=== PATIENT | female | born 1945 | race Caucasian/White ===

== ENCOUNTER → 2025-02-09 12:29 | Outpatient (REF) | payer MEDICARE, SELFPAY | LOC: WOUND 12:29 | PROVIDERS: ATTENDING PHYSICIAN Surgery; FAMILY PHYSICIAN Family Medicine | DX: L97.222 Non-pressure chronic ulcer of left calf with fat layer exposed (principal); L97.322 Non-pressure chronic ulcer of left ankle with fat layer exposed; I73.9 Peripheral vascular disease, unspecified; I87.2 Venous insufficiency (chronic) (peripheral); R60.1 Generalized edema; Z96.653 Presence of artificial knee joint, bilateral | CPT/HCPCS: 11042; 99204 ==

== ENCOUNTER → 2025-02-17 14:15 | Outpatient (REF) | payer MEDICARE, BC, SELFPAY | LOC: WOUND 14:15 | PROVIDERS: ATTENDING PHYSICIAN Surgery; FAMILY PHYSICIAN Family Medicine | DX: L97.222 Non-pressure chronic ulcer of left calf with fat layer exposed (principal); L97.322 Non-pressure chronic ulcer of left ankle with fat layer exposed; I73.9 Peripheral vascular disease, unspecified; I87.2 Venous insufficiency (chronic) (peripheral); R60.1 Generalized edema; Z96.653 Presence of artificial knee joint, bilateral | CPT/HCPCS: 11042 ==

== ENCOUNTER → 2025-02-23 07:46 | Outpatient (REF) | payer MEDICARE, BC, SELFPAY | LOC: RAD 07:46 | PROVIDERS: ATTENDING PHYSICIAN Surgery; FAMILY PHYSICIAN Family Medicine | DX: L97.222 Non-pressure chronic ulcer of left calf with fat layer exposed (principal); I87.2 Venous insufficiency (chronic) (peripheral); L73.9 Follicular disorder, unspecified | CPT/HCPCS: 93922; 93971 ==

== ENCOUNTER → 2025-02-23 09:02 | Outpatient (REF) | payer MEDICARE, BC, SELFPAY | LOC: WOUND 09:02 | PROVIDERS: ATTENDING PHYSICIAN Surgery; FAMILY PHYSICIAN Family Medicine | DX: L97.222 Non-pressure chronic ulcer of left calf with fat layer exposed (principal); L97.322 Non-pressure chronic ulcer of left ankle with fat layer exposed; I73.9 Peripheral vascular disease, unspecified; I87.2 Venous insufficiency (chronic) (peripheral); R60.1 Generalized edema; Z96.653 Presence of artificial knee joint, bilateral | CPT/HCPCS: 11042; 93922; 93971 ==

== ENCOUNTER → 2025-03-02 11:00 | Outpatient (REF) | payer MEDICARE, BC, SELFPAY | LOC: WOUND 11:00 | PROVIDERS: ATTENDING PHYSICIAN Surgery; FAMILY PHYSICIAN Family Medicine | DX: L97.322 Non-pressure chronic ulcer of left ankle with fat layer exposed (principal); I87.2 Venous insufficiency (chronic) (peripheral); R60.1 Generalized edema; Z96.653 Presence of artificial knee joint, bilateral | CPT/HCPCS: 11042 ==

== ENCOUNTER → 2025-03-20 09:56 | Outpatient (REF) | payer MEDICARE, BC, SELFPAY | LOC: WOUND 09:56 | PROVIDERS: ATTENDING PHYSICIAN Surgery | DX: L97.322 Non-pressure chronic ulcer of left ankle with fat layer exposed (principal); I87.2 Venous insufficiency (chronic) (peripheral); R60.1 Generalized edema; Z96.653 Presence of artificial knee joint, bilateral | CPT/HCPCS: 99213 ==

== ENCOUNTER → 2025-03-30 08:53 | Outpatient (REF) | payer MEDICARE, BC, SELFPAY | LOC: WOUND 08:53 | PROVIDERS: ATTENDING PHYSICIAN Surgery; FAMILY PHYSICIAN Family Medicine | DX: L97.322 Non-pressure chronic ulcer of left ankle with fat layer exposed (principal); I87.2 Venous insufficiency (chronic) (peripheral); R60.1 Generalized edema; Z96.653 Presence of artificial knee joint, bilateral | CPT/HCPCS: 11042; 11045 ==

== ENCOUNTER → 2025-04-03 08:41 | Outpatient (REF) | payer MEDICARE, BC, SELFPAY | LOC: WOUND 08:41 | PROVIDERS: ATTENDING PHYSICIAN Surgery; FAMILY PHYSICIAN Family Medicine | DX: L97.322 Non-pressure chronic ulcer of left ankle with fat layer exposed (principal); I87.2 Venous insufficiency (chronic) (peripheral); Z96.653 Presence of artificial knee joint, bilateral | CPT/HCPCS: 29581 ==

== ENCOUNTER → 2025-04-06 08:48 | Outpatient (REF) | payer MEDICARE, BC, SELFPAY | LOC: WOUND 08:48 | PROVIDERS: ATTENDING PHYSICIAN Surgery; FAMILY PHYSICIAN Family Medicine | DX: L97.322 Non-pressure chronic ulcer of left ankle with fat layer exposed (principal); I87.2 Venous insufficiency (chronic) (peripheral); R60.1 Generalized edema; Z96.653 Presence of artificial knee joint, bilateral | CPT/HCPCS: 11042 ==

== ENCOUNTER → 2025-04-13 09:01 | Outpatient (REF) | payer MEDICARE, BC, SELFPAY | LOC: WOUND 09:01 | PROVIDERS: ATTENDING PHYSICIAN Surgery; FAMILY PHYSICIAN Family Medicine | DX: L97.322 Non-pressure chronic ulcer of left ankle with fat layer exposed (principal); I87.2 Venous insufficiency (chronic) (peripheral); R60.1 Generalized edema; Z96.653 Presence of artificial knee joint, bilateral | CPT/HCPCS: 11042 ==

== ENCOUNTER → 2025-04-20 08:41 | Outpatient (REF) | payer MEDICARE, BC, SELFPAY | LOC: WOUND 08:41 | PROVIDERS: ATTENDING PHYSICIAN Surgery; FAMILY PHYSICIAN Family Medicine | DX: L97.322 Non-pressure chronic ulcer of left ankle with fat layer exposed (principal); I87.2 Venous insufficiency (chronic) (peripheral); R60.1 Generalized edema; Z96.653 Presence of artificial knee joint, bilateral | CPT/HCPCS: 29581; 99213 ==

== ENCOUNTER → 2025-04-27 08:53 | Outpatient (REF) | payer MEDICARE, BC, SELFPAY | LOC: WOUND 08:53 | PROVIDERS: ATTENDING PHYSICIAN Surgery; FAMILY PHYSICIAN Family Medicine | DX: L97.322 Non-pressure chronic ulcer of left ankle with fat layer exposed (principal); I87.2 Venous insufficiency (chronic) (peripheral); R60.1 Generalized edema; Z96.653 Presence of artificial knee joint, bilateral | CPT/HCPCS: 29581; 99213 ==

== ENCOUNTER → 2025-05-04 08:46 | Outpatient (REF) | payer MEDICARE, BC, SELFPAY | LOC: WOUND 08:46 | PROVIDERS: ATTENDING PHYSICIAN Surgery; FAMILY PHYSICIAN Family Medicine | DX: L97.322 Non-pressure chronic ulcer of left ankle with fat layer exposed (principal); I87.2 Venous insufficiency (chronic) (peripheral); R60.1 Generalized edema; Z96.653 Presence of artificial knee joint, bilateral | CPT/HCPCS: 99213 ==

== ENCOUNTER → 2025-05-11 08:48 | Outpatient (REF) | payer MEDICARE, BC, SELFPAY | LOC: WOUND 08:48 | PROVIDERS: ATTENDING PHYSICIAN Surgery; FAMILY PHYSICIAN Family Medicine | DX: L97.322 Non-pressure chronic ulcer of left ankle with fat layer exposed (principal); I87.2 Venous insufficiency (chronic) (peripheral); R60.1 Generalized edema; Z96.653 Presence of artificial knee joint, bilateral | CPT/HCPCS: 99212 ==